=== PATIENT | female | born 1980 | race Caucasian/White ===

== ENCOUNTER 2016-06-11 07:20 | Emergency (ER) | payer BC, OTHER ==
[~2016-06-11] VITALS: Ht 157.5 cm; Wt 90.0 kg
[~2016-06-11 07:20] MED LIST: CITA20 PO; KLON2TAB PO; XANA0.5T PO
[2016-06-11 07:22] VITALS: BP 149/64; PULSE 115; RESP 15; TEMP 97.9; O2SAT 98
[2016-06-11] MEDS ORDERED: ALPR.5 PO (08:59)
[2016-06-11] MEDS ORDERED: GABA300C5 PO (08:59)
[2016-06-11] MEDS ORDERED: HYDR25TA5 PO (09:35)
--- NOTE | 2016-06-11 09:36 | PD ---
HPI Chief Complaint: Edema Time Seen by Provider: 09:25 Travel History International Travel<30 days: No Contact w/Intl Traveler<30days: No Traveled to known affect area: No History of Present Illness HPI Healthy 35-year-old female here with complaint of peripheral edema. Over the last week patient has noticed slight edema in the bilateral feet, ankles. 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 Patient notes that throughout the day at work, the swelling gets worse. When she wakes up in the morning the swelling is gone after having elevated her legs throughout the day. 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 She states that the swelling is slightly uncomfortable but not necessarily painful. No erythema, recent travel, history of DVT or PE. No history of heart failure, cough or congestion. PFSH Past Medical History Anxiety: Yes Psychiatric: Yes (PANIC ATTACKS) ?: Not LMP: MAY 2016 Social History Alcohol Use: No Tobacco Use: Yes (1 PPD) Substance Use: No Allergies-Medications (Allergen,Severity, Reaction): Coded Allergies: No Known Allergies (Verified , 06/11/16) Reported Meds & Prescriptions Reported Meds & Active Scripts Active Reported Gabapentin 300 Mg Cap 300 Mg PO HS Xanax (Alprazolam) 0.5 Mg Tab 0.5 Mg PO DAILY PRN Xanax 0.5 mg (Alprazolam) 0.5 Mg Tab 0.5 Mg PO TID Review of Systems Except as stated in HPI: all other systems reviewed are Neg Physical Exam Narrative GENERAL: Well-appearing female in no acute distress SKIN: Warm and dry. HEAD: Normocephalic. EYES: No scleral icterus. No injection or drainage. ENT: Mucous membranes pink and moist. NECK: Supple CARDIOVASCULAR: Tachycardic with heart rate in the 110s, regular rhythm, normalized upon recheck. RESPIRATORY: No accessory muscle use. Clear to auscultation. Breath sounds equal bilaterally. GASTROINTESTINAL: Abdomen soft, non-tender, nondistended. MUSCULOSKELETAL: 1+ peripheral edema to the ankles bilaterally. Good distal sensation, pulses. No palpable cords, erythema. Normal gait. NEUROLOGICAL: Awake and alert. Normal speech. PSYCHIATRIC: Appropriate mood and affect; insight and judgment normal. Data Data Last Documented VS Vital Signs Date Time Temp Pulse Resp B/P Pulse Ox O2 Delivery O2 Flow Rate FiO2 06/11/16 07:22 97.9 115 15 149/64 98 MDM Medical Decision Making Medical Screen Exam Complete: Yes Emergency Medical Condition: Yes Medical Record Reviewed: Yes Differential Diagnosis 35-year-old female with bilateral lower extremity edema to the feet and ankles over the last week since starting a new job. History and exam are consistent with venous stasis and peripheral dependent edema. No evidence of DVT, cellulitis, CHF. Narrative Course Patient was reassured, encouraged to elevate the legs. Encouraged to use compression stockings while standing. Given short course of diuretic to help remove edema and discharged home. Diagnosis Primary Impression: Venous stasis dermatitis of both lower extremities Referrals: Primary Care Physician as needed Departure Forms: School Release, Return to School Date: Jun 12, 2016 Tests/Procedures, Work Release Enter return to work date: Jun 12, 2016 Additional Instructions: 1 tablet of diuretic daily as needed for peripheral edema. Compression stockings while standing. Keep legs elevated as much as possible. Med/Other Pt SpecificInfo: Prescription(s) given Scripts Hydrochlorothiazide 25 Mg Tab25 Mg PO DAILY #7 TAB Ref 0 Prov:Daisy Salinas MD 06/11/16 Disposition: 01 DISCHARGE HOME Condition: Stable Daisy Salinas MD Jun 11, 2016 09:36
[2016-06-11 10:21] VITALS: BP 119/78; PULSE 77; RESP 20; O2SAT 98
== END 2016-06-11 10:02 | disposition home or self-care (01) ==
LOC: NEPB 07:20
DX: I87.8 Other specified disorders of veins (principal); L30.9 Dermatitis, unspecified; F17.210 Nicotine dependence, cigarettes, uncomplicated
CPT/HCPCS: 99283

== ENCOUNTER 2016-09-15 19:31 | Emergency (ER) | payer BC ==
[~2016-09-15] VITALS: Ht 157.5 cm; Wt 92.0 kg
[~2016-09-15 19:31] MED LIST changes: +ALPR.5 PO; -CITA20 PO; +GABA300C5 PO; +HYDR25TA5 PO; -KLON2TAB PO
[2016-09-15 19:34] VITALS: BP 133/88; PULSE 75; RESP 18; TEMP 98.4; O2SAT 99
--- NOTE | 2016-09-15 19:36 | PD ---
Physical Exam Date Seen by Provider: Sep 15, 2016 Time Seen by Provider: 19:35 Narrative 36 yo female here for medical side effect. Started cymbalta recently since tuesday. Now she is having diarrhea and today developed muscle spasms. has never taken this before. No chest pain or SOB. Pain all over. 08/28. Vitals are stable in triage. Awaiting bed placement. Data Data Last Documented VS Vital Signs Date Time Temp Pulse Resp B/P Pulse Ox O2 Delivery O2 Flow Rate FiO2 09/15/16 19:34 98.4 75 18 133/88 99 Room Air [facility] Medical Record Reviewed: Yes Supervised Visit with ROSE: No Luis Fernando Strange Sep 15, 2016 19:36
[2016-09-15] MEDS ORDERED: TRAZ100T6 PO (19:40)
[2016-09-15] MEDS ORDERED: CYMB30CA PO (19:40)
--- NOTE | 2016-09-15 20:56 | PD ---
HPI Chief Complaint: Musculoskeletal Complaint Time Seen by Provider: 20:12 Travel History International Travel<30 days: No Contact w/Intl Traveler<30days: No Traveled to known affect area: No History of Present Illness HPI The patient was seen and examined in the presence of the nurse. This patient started taking a new medications Cymbalta 2 days ago. Soon after that she developed some vague symptoms the worst of which is diffuse myalgias. She thinks it's medication related. There is no injury or fever. She has depression and anxiety and that's what her psychiatrist is trying to treat. No alleviating factors. PFSH Past Medical History Anxiety: Yes Depression: Yes Psychiatric: Yes (PANIC ATTACKS) ?: Not LMP: 09/15/16 Past Surgical History Surgical History: No Previous Surgery Social History Alcohol Use: No Tobacco Use: Yes (1 PPD) Substance Use: No Allergies-Medications (Allergen,Severity, Reaction): Coded Allergies: No Known Allergies (Verified , 06/11/16) Reported Meds & Prescriptions Reported Meds & Active Scripts Active Reported Cymbalta DR (Duloxetine HCl) 30 Mg Capdr 30 Mg PO DAILY Trazodone (Trazodone HCl) 100 Mg Tablet 100 Mg PO HS Xanax (Alprazolam) 0.5 Mg Tab 0.5 Mg PO DAILY PRN Review of Systems General / Constitutional: No: Fever HENT: No: Headaches Respiratory: No: Cough Physical Exam Narrative CARDIOVASCULAR: Regular rate and rhythm without murmur. Extremities showed no edema or varicosities. RESPIRATORY: Respiratory effort unlabored, no retractions or use of accessory muscles. Breath sounds are clear and symmetric. GASTROINTESTINAL: Abdomen soft, non-tender, nondistended. Positive bowel sounds. No hepato-splenomegaly, or palpable masses. No guarding. SKIN: Focused skin assessment reveals no rash or ulcers. Skin is warm and dry. Palpation shows no induration or nodules. Data Data Last Documented VS Vital Signs Date Time Temp Pulse Resp B/P Pulse Ox O2 Delivery O2 Flow Rate FiO2 09/15/16 19:34 98.4 75 18 133/88 99 Room Air MDM Medical Decision Making Medical Screen Exam Complete: Yes Emergency Medical Condition: Yes Medical Record Reviewed: Yes Differential Diagnosis Medication side effect, flu syndrome, nonspecific myalgias Narrative Course I have reviewed the patient's electronic medical record. Presentation here is mild. She has normal vital signs and benign exam. Recommended she stop her medication and contact her prescribing physician to discuss alternatives and follow-up with her physician Diagnosis Primary Impression: Medication side effect Qualified Code: T88.7XXA - Medication side effect, initial encounter Additional Impression: Myalgia Additional Instructions: The patient was advised to follow up with their physician and return if they worsen. Med/Other Pt SpecificInfo: Other Disposition: 01 DISCHARGE HOME Condition: Stable Kevin Mckinney MD Sep 15, 2016 20:56
== END 2016-09-15 21:09 | disposition home or self-care (01) ==
LOC: NEPD 19:31
DX: T88.7XXA Unspecified adverse effect of drug or medicament, initial encounter (principal); M79.1 Myalgia; F17.210 Nicotine dependence, cigarettes, uncomplicated; F41.9 Anxiety disorder, unspecified; F32.9 Major depressive disorder, single episode, unspecified
CPT/HCPCS: 99281

== ENCOUNTER 2016-09-21 12:40 | Emergency (ER) | payer BC ==
[~2016-09-21] VITALS: Ht 157.5 cm; Wt 90.5 kg
[~2016-09-21 12:40] MED LIST changes: +CYMB30CA PO; +TRAZ100T6 PO
[2016-09-21 12:42] VITALS: BP 136/67; PULSE 99; RESP 18; TEMP 99.2; O2SAT 99
[2016-09-21] MEDS ORDERED: SODIUM CHLOR 0.9% 1000 ML INJ 1,000 ML IV SCH (13:28)
[2016-09-21] MEDS ORDERED: ONDANSETRON HCL 4 MG/2 ML VIAL IVP ONE (13:30)
[2016-09-21] MEDS ORDERED: SODIUM CHLORIDE 0.9% FLUSH 10 ML FLUSH IV FLUSH PRN (13:30)
[2016-09-21] MEDS ORDERED: FAMOTIDINE 20 MG/2 ML VIAL IV PUSH ONE (13:30)
--- NOTE | 2016-09-21 13:30 | PD ---
HPI Chief Complaint: GI Complaint Time Seen by Provider: 13:29 Travel History International Travel<30 days: No Contact w/Intl Traveler<30days: No Traveled to known affect area: No History of Present Illness HPI 36-year-old female with a history of ulcerative colitis presents to the emergency department for evaluation of nausea, vomiting, diarrhea and abdominal pain since yesterday afternoon. Patient states that she has a history of ulcerative colitis and sometimes gets mild abdominal cramping with diarrhea but does not usually have vomiting associated with this. States that yesterday afternoon she suddenly had multiple episodes of nonbloody nonbilious emesis. States she's been unable to keep down any food or fluids since yesterday. Complains of chills but denies fever. States that her abdominal pain is generalized and describes it as a cramping pain. Denies any chest pain, shortness of breath, bloody stool, bloody vomit, dysuria, hematuria. Denies , last menstrual period 1 week ago. Denies any prior abdominal surgeries. She has tried Tums with some improvement of symptoms. States that her 2 cousins had similar symptoms earlier this week when she was spending time with them. Denies any recent travel. No other complaints. PFSH Past Medical History Anxiety: Yes Depression: Yes Diminished Hearing: No Psychiatric: Yes (PANIC ATTACKS) Ulcer: Yes (ULCERATIVE COLITIS ) Tetanus Vaccination: Never Vaccinated Influenza Vaccination: No ?: Not LMP: 09/18/2015 : 0 Para: 0 Past Surgical History Surgical History: No Previous Surgery Social History Alcohol Use: No Tobacco Use: Yes (1 PPD) Substance Use: No Allergies-Medications (Allergen,Severity, Reaction): Coded Allergies: No Known Allergies (Verified , 09/21/16) Reported Meds & Prescriptions Reported Meds & Active Scripts Active Zofran (Ondansetron HCl) 4 Mg Tab 4 Mg PO Q6HR PRN Reported Trazodone (Trazodone HCl) 100 Mg Tablet 100 Mg PO HS Xanax (Alprazolam) 0.5 Mg Tab 0.5 Mg PO DAILY PRN Review of Systems Except as stated in HPI: all other systems reviewed are Neg Physical Exam Narrative GENERAL: Well-nourished and well-developed pleasant female patient in no acute distress who is nontoxic appearing. SKIN: Warm and dry. HEAD: Normocephalic and atraumatic. EYES: No injection, drainage, or hyphema noted. PERRLA. EOMI. ENT: No nasal drainage noted. Oropharynx is clear. NECK: Supple and the trachea is midline. CARDIOVASCULAR: Regular rate and rhythm. RESPIRATORY: Breath sounds are equal bilaterally with no accessory muscle use, wheezing, rhonchi, or crackles. GASTROINTESTINAL: Abdomen is soft, non-tender, and nondistended. No rebound tenderness or guarding. MUSCULOSKELETAL: No obvious deformities, swelling, cyanosis, or ecchymosis is present throughout the upper and lower extremities. Patient has full range of motion without any signs of neurovascular compromise. NEUROLOGICAL: Awake, alert, and oriented. Normal speech and gait. Cranial nerves are grossly intact. Data Data Last Documented VS Vital Signs Date Time Temp Pulse Resp B/P Pulse Ox O2 Delivery O2 Flow Rate FiO2 09/21/16 14:30 82 20 108/61 97 Room Air 09/21/16 12:42 99.2 Orders Complete Blood Count With Diff (09/21/16 13:28) Comprehensive Metabolic Panel (09/21/16 13:28) Lipase (09/21/16 13:28) Urinalysis - C+S If Indicated (09/21/16 13:28) Iv Access Insert/Monitor (09/21/16 13:28) Ecg Monitoring (09/21/16 13:28) Oximetry (09/21/16 13:28) Ondansetron Inj (Zofran Inj) (09/21/16 13:30) Sodium Chlor 0.9% 1000 Ml Inj (Ns 1000 M (09/21/16 13:28) Sodium Chloride 0.9% Flush (Ns Flush) (09/21/16 13:30) Ed Urine Pregnancytest Poc (09/21/16 13:28) Famotidine Inj (Pepcid Inj) (09/21/16 13:30) Labs Laboratory Tests Test 09/21/16 09/21/16 13:00 13:35 White Blood Count 11.7 TH/MM3 Red Blood Count 4.74 MIL/MM3 Hemoglobin 13.7 GM/DL Hematocrit 41.5 % Mean Corpuscular Volume 87.7 FL Mean Corpuscular Hemoglobin 28.9 PG Mean Corpuscular Hemoglobin 32.9 % Concent Red Cell Distribution Width 14.6 % Platelet Count 338 TH/MM3 Mean Platelet Volume 9.1 FL Neutrophils (%) (Auto) 83.4 % Lymphocytes (%) (Auto) 11.3 % Monocytes (%) (Auto) 4.5 % Eosinophils (%) (Auto) 0.5 % Basophils (%) (Auto) 0.3 % Neutrophils # (Auto) 9.8 TH/MM3 Lymphocytes # (Auto) 1.3 TH/MM3 Monocytes # (Auto) 0.5 TH/MM3 Eosinophils # (Auto) 0.1 TH/MM3 Basophils # (Auto) 0.0 TH/MM3 CBC Comment DIFF FINAL Differential Comment Sodium Level 138 MEQ/L Potassium Level 3.7 MEQ/L Chloride Level 105 MEQ/L Carbon Dioxide Level 25.8 MEQ/L Anion Gap 7 MEQ/L Blood Urea Nitrogen 16 MG/DL Creatinine 0.90 MG/DL Estimat Glomerular Filtration 71 ML/MIN Rate Random Glucose 101 MG/DL Calcium Level 9.4 MG/DL Total Bilirubin 0.4 MG/DL Aspartate Amino Transf 10 U/L (AST/SGOT) Alanine Aminotransferase 25 U/L (ALT/SGPT) Alkaline Phosphatase 82 U/L Total Protein 7.7 GM/DL Albumin 3.7 GM/DL Lipase 104 U/L Urine Color YELLOW Urine Turbidity HAZY Urine pH 6.0 Urine Specific [place] 1.022 Urine Protein TRACE mg/dL Urine Glucose (UA) NEG mg/dL Urine Ketones NEG mg/dL Urine Occult Blood NEG Urine Nitrite NEG Urine Bilirubin NEG Urine Urobilinogen LESS THAN 2.0 MG/DL Urine Leukocyte Esterase NEG Urine RBC LESS THAN 1 /hpf Urine WBC 1 /hpf Urine Squamous Epithelial 13 /hpf Cells Urine Bacteria RARE /hpf Urine Mucus FEW /lpf Microscopic Urinalysis Comment CULT NOT INDICATED MDM Medical Decision Making Medical Screen Exam Complete: Yes Emergency Medical Condition: Yes Differential Diagnosis Gastroenteritis versus viral versus colitis versus dehydration Narrative Course 36-year-old female presents to the emergency department for evaluation of nausea , vomiting, diarrhea for one day. Patient is afebrile, vital signs are stable. Abdominal examination is benign. IV access is obtained, labs been drawn and sent. Patient is placed on cardiac telemetry and pulse oximetry monitoring. Patient is administered IV fluids and Zofran 4 mg IV as well as Pepcid 20 mg IV. ED urine test is negative. CBC shows slightly elevated white blood cell count of 11.7, otherwise unremarkable. CMP is unremarkable. Urinalysis is unremarkable. Labs are unremarkable. Patient reports great improvement of symptoms with IV fluids and medications. This is likely viral gastroenteritis. Discussed supportive care with the patient. She is advised follow-up as an outpatient with her PCP. Patient verbalizes understanding and agreement with treatment plan. I discussed the case with my attending physician Dr. Salinas who is aware of the patients history, physical examination findings, and treatment plan. Diagnosis Primary Impression: Gastroenteritis Referrals: Primary Care Physician Patient Instructions: Gastroenteritis (ED), General Instructions Additional Instructions: Take medication as prescribed. Follow-up with your Primary Care Physician. Return to the ED for any acute worsening of symptoms. Med/Other Pt SpecificInfo: Prescription(s) given Scripts Ondansetron (Zofran)4 Mg Tab4 Mg PO Q6HR PRN (NAUSEA OR VOMITING) #10 TAB Ref 0 Prov:Daisy Salinas MD 09/21/16 Disposition: 01 DISCHARGE HOME Condition: Stable Laurel Fried Sep 21, 2016 13:30
[2016-09-21 14:10] LABS: AUTOMATED NEUTROPHIL # 9.8 TH/MM3 (1.8-7.7); BASOPHIL % 0.3 % (0.0-2.0); EOSINOPHIL # 0.1 TH/MM3 (0-0.4); EOSINOPHIL % 0.5 % (0.0-4.0); HEMATOCRIT 41.5 % (35.0-46.0); HEMO FLAGS DIFF FINAL; LYMPH % 11.3 % (9.0-44.0); LYMPHOCYTE # 1.3 TH/MM3 (1.0-4.8); MEAN CELL VOLUME 87.7 FL (80.0-100.0); MEAN CORPUSCULAR HEMOGLOBIN 28.9 PG (27.0-34.0); MEAN CORPUSCULAR HGB CONC 32.9 % (32.0-36.0); MONO % 4.5 % (0.0-8.0); NEUT % 83.4 % (16.0-70.0); PLATELET COUNT 338 TH/MM3 (150-450); RED BLOOD COUNT 4.74 MIL/MM3 (4.00-5.30); RED CELL DISTRIBUTION WIDTH 14.6 % (11.6-17.2); WHITE BLOOD COUNT 11.7 TH/MM3 (4.0-11.0)
[2016-09-21 14:23] LABS: ALT (GPT) 25 U/L (10-53); ANION GAP 7 MEQ/L (5-15); AST (GOT) 10 U/L (15-37); BICARBONATE 25.8 MEQ/L (21.0-32.0); BLOOD UREA NITROGEN 16 MG/DL (7-18); CHLORIDE 105 MEQ/L (98-107); GLOMERULAR FILTRATION RATE 71 ML/MIN (>89); POTASSIUM 3.7 MEQ/L (3.5-5.1); SODIUM (NA) 138 MEQ/L (136-145)
[2016-09-21 14:25] LABS: ALKALINE PHOSPHATASE 82 U/L (45-117); TOTAL BILIRUBIN ADULT 0.4 MG/DL (0.2-1.0)
[2016-09-21 14:30] VITALS: BP 108/61; PULSE 82; RESP 20; O2SAT 97
[2016-09-21 14:39] LABS: BACTERIA, URINE RARE /hpf; BLOOD, URINE NEG (NEG); COMMENT (UR) CULT NOT INDICATED; CULTURE IF INDICATED CULT NOT INDICATED; GLUCOSE,URINE NEG (NEG); KETONE, URINE NEG (NEG); MUCUS URINE FEW /lpf (OCC); NITRITE,URINE NEG (NEG); SQUAMOUS EPITHELIAL CELL URINE 13 /hpf (0-5); URINE COLOR YELLOW (YELLW/STRAW)
[2016-09-21] MEDS ORDERED: ZOFR4TAB PO (14:47)
== END 2016-09-21 15:23 | disposition home or self-care (01) ==
LOC: NEPD 12:40
DX: K52.9 Noninfective gastroenteritis and colitis, unspecified (principal); F17.210 Nicotine dependence, cigarettes, uncomplicated
CPT/HCPCS: 80053; 81001; 83690; 84703; 85025; 96361; 96374; 96375; 99284; J2405; J7030